=== PATIENT | female | born 1990 ===

== ENCOUNTER 2022-04-11 07:10 | Day surgery (SDC) | payer OTHER ==
[2022-04-11 07:20] VITALS: BP 146/95
[2022-04-11 08:07] LABS: HEMATOCRIT 42.4 % (37.0-47.0); HEMOGLOBIN 14.7 g/dl (12.0-16.0); IMMATURE GRANULOCYTES 0.1 % (0.0-5.0); MEAN CELL VOLUME 94.6 fL CALC (80.0-100.0); MEAN CORPUSCULAR HGB 32.8 pG CALC (26.0-32.0); MEAN CORPUSCULAR HGB CONC 34.7 g/dL CAL (32.0-36.0); NEUT# 7.17 thou/uL (2.00-7.15); RED BLOOD COUNT 4.48 mill/uL (4.20-5.60); RED CELL DISTRI WIDTH 12.4 % (11.5-15.5)
[2022-04-11 08:28] LABS: ALBUMIN 4.7 g/dL (3.2-5.0); ALKALINE PHOSPHATASE 69 u/l (38-126); ANION GAP 9 (6-22 (CALC)); BILIRUBIN, TOTAL 0.6 mg/dL (0.0-1.4); BUN 10 mg/dL (7-17); BUN/CREATININE RATIO 16 (12-20 (CALC)); CARBON DIOXIDE 29 mmol/l (22-30); CHLORIDE 102 mmol/l (95-108); CREATININE 0.6 mg/dL (0.5-1.0); GFR FOR AFR.AMER. > 60 ML/MIN (>=60 (CALC)); GFR OTHER RACES > 60 ML/MIN (>=60 (CALC)); POTASSIUM 4.4 mmol/l (3.5-5.1); SGOT/AST 29 u/l (14-36); SODIUM 136 mmol/l (137-146); TOTAL PROTEIN 7.7 g/dL (6.3-8.2)
[2022-04-11 12:23] VITALS: BP 92/51
[2022-04-11] MEDS ORDERED: NALTREXONE50 MG PO (13:20)
[2022-04-11] MEDS ORDERED: CLONIDINE0.1 MG PO (13:21)
[2022-04-11] MEDS ORDERED: KLONOPIN0.5 MG PO (13:22)
[2022-04-11] MEDS ORDERED: KLONOPIN2 MG PO (13:40)
[2022-04-11 13:55] VITALS: BP 135/87
[2022-04-11 15:40] VITALS: BP 140/95
[2022-04-11 19:15] VITALS: BP 129/86
[2022-04-11 22:35] VITALS: BP 134/82
[2022-04-12 03:32] VITALS: BP 124/85
[2022-04-12 05:48] LABS: HEMATOCRIT 44.9 % (37.0-47.0); HEMOGLOBIN 15.3 g/dl (12.0-16.0); IMMATURE GRANULOCYTES 0.3 % (0.0-5.0); MEAN CELL VOLUME 93.2 fL CALC (80.0-100.0); MEAN CORPUSCULAR HGB 31.7 pG CALC (26.0-32.0); MEAN CORPUSCULAR HGB CONC 34.1 g/dL CAL (32.0-36.0); NEUT# 10.66 thou/uL (2.00-7.15); RED BLOOD COUNT 4.82 mill/uL (4.20-5.60)
[2022-04-12 06:29] LABS: ALBUMIN 4.7 g/dL (3.2-5.0); ALKALINE PHOSPHATASE 74 u/l (38-126); ANION GAP 14 (6-22 (CALC)); BILIRUBIN, TOTAL 0.5 mg/dL (0.0-1.4); BUN 9 mg/dL (7-17); BUN/CREATININE RATIO 14 (12-20 (CALC)); CARBON DIOXIDE 25 mmol/l (22-30); CHLORIDE 105 mmol/l (95-108); CREATININE 0.6 mg/dL (0.5-1.0); GFR FOR AFR.AMER. > 60 ML/MIN (>=60 (CALC)); GFR OTHER RACES > 60 ML/MIN (>=60 (CALC)); MAGNESIUM 2.4 mg/dL (1.6-2.3); SGOT/AST 30 u/l (14-36); SODIUM 139 mmol/l (137-146); TOTAL PROTEIN 7.9 g/dL (6.3-8.2)
[2022-04-12 07:32] VITALS: BP 141/92
[2022-04-12 08:00] VITALS: BP 141/92
[2022-04-12 11:18] VITALS: BP 121/76
== END 2022-04-12 12:30 | disposition home or self-care (01) | DRG 897 ==
LOC: ANR 07:10 → MS2 07:10 → ANR 04-12 12:30
PROVIDERS: ATTEND Anesthesiology
DX: F11.20 Opioid dependence, uncomplicated (principal)
CPT/HCPCS: J2354